=== PATIENT | female | born 1945 | race Caucasian/White ===

== ENCOUNTER 2020-01-09 07:50 | Emergency (ER) | payer MEDICARE, OTHER ==
[2020-01-09] MEDS ORDERED: fentaNYL 100 MCG/2 ML SDV IVPUSH ONE ×2 (08:01→09:36)
--- NOTE | 2020-01-09 08:06 | EDM.PDOC ---
ED HPI GENERAL MEDICAL PROBLEM - General Chief Complaint: Lower Extremity Injury/Pain Stated Complaint: FELL MAYBE BROKE LEG Time Seen by Provider: 01/09/20 08:00 Source of Information: Reports: Patient, RN Notes Reviewed History Limitations: Reports: No Limitations - History of Present Illness INITIAL COMMENTS - FREE TEXT/NARRATIVE: 74-year-old female presents emergency department today complaint of right leg pain, she does have a history of hip replacement x2 unfortunately early this morning she tripped over some boxes in her house landed on her right side heard a loud snap with immediate pain in her right leg, denies any loss of consciousness denies any syncopal event did not hit her head - Related Data Allergies Allergy/AdvReac Type Severity Reaction Status Date / Time No Known Allergies Allergy Verified 01/09/20 07:51 Home Meds: Home Meds NK [No Known Home Meds] 01/09/20 [History] Past Medical History HEENT History: Reports: Hard of Hearing COTTON FACTOR History: Reports: - Past Surgical History Head Surgeries/Procedures: Reports: None HEENT Surgical History: Reports: LASIK Female Surgical History: Reports: Salpingo-Oophorectomy Musculoskeletal Surgical History: Reports: Hip Replacement, Knee Replacement Dermatological Surgical History: Reports: None Social & Family History - Tobacco Use Smoking Status *Q: Never Smoker - Caffeine Use Caffeine Use: Reports: Coffee - Alcohol Use Days Per Week of Alcohol Use: 5 Number of Drinks Per Day: 1 Total Drinks Per Week: 5 - Recreational Drug Use Recreational Drug Use: No Review of Systems - Review of Systems Review Of Systems: See Below Respiratory: Reports: No Symptoms Cardiovascular: Reports: No Symptoms Musculoskeletal: Reports: Leg Pain (Right side) Neurological: Reports: No Symptoms ED EXAM, GENERAL - Physical Exam Exam: See Below Free Text/Narrative:: Examination the right leg she is in traction I do not appreciate any obvious deformity there is no erythema there is no edema there is no ecchymosis I cannot elicit any pain to palpation over the hip however she does have significant tenderness mid thigh consistent with a femur injury Exam Limited By: No Limitations General Appearance: Alert, Mild Distress Throat/Mouth: No Airway Compromise Respiratory/Chest: No Respiratory Distress Course - Vital Signs Last Recorded V/S: Last Vital Signs Temp 97.1 F 01/09/20 07:53 Pulse 82 01/09/20 08:45 Resp 16 01/09/20 08:08 BP 149/74 H 01/09/20 08:45 Pulse Ox 99 01/09/20 08:45 - Orders/Labs/Meds Orders: Active Orders 24 hr Category Date Time Status Femur Min 2V Rt [CR] Stat Exams 01/09/20 08:03 Taken Meds: Medications Discontinued Medications Generic Name Dose Route Start Last Admin Trade Name Katharina PRN Reason Stop Dose Admin Cyclobenzaprine HCl 10 mg 01/09/20 09:08 01/09/20 09:12 Flexeril PO 01/09/20 09:09 10 mg ONETIME ONE Administration Fentanyl 100 mcg 01/09/20 08:01 01/09/20 08:06 Sublimaze IVPUSH 01/09/20 08:02 100 mcg ONETIME ONE Administration Hydromorphone HCl 0.5 mg 01/09/20 09:07 01/09/20 09:12 Dilaudid IVPUSH 01/09/20 09:08 0.5 mg ONETIME ONE Administration Departure - Departure Time of Disposition: 09:30 Disposition: DC/Tfer to Acute Hospital 02 Condition: Fair Clinical Impression: Femur fracture, right Qualifiers: Encounter type: initial encounter Femur location: shaft Fracture type: closed Fracture morphology: spiral Fracture alignment: displaced Qualified Code(s): S72.341A - Displaced spiral fracture of shaft of right femur, initial encounter for closed fracture - Discharge Information Referrals: PCP,None [Primary Care Provider] - Forms: ED Department Discharge Sepsis Event Note (ED) - Evaluation Sepsis Screening Result: No Definite Risk - Focused Exam Vital Signs: Vital Signs Temp Pulse Resp BP Pulse Ox 01/09/20 08:45 82 149/74 H 99 01/09/20 08:08 68 16 141/59 H 99 01/09/20 07:53 97.1 F 67 16 161/66 H 99 - My Orders Last 24 Hours: My Active Orders 01/09/20 08:03 Femur Min 2V Rt [CR] Stat - Assessment/Plan Last 24 Hours: My Active Orders 01/09/20 08:03 Femur Min 2V Rt [CR] Stat Plan: Assessment Acuity = acute Site and laterality = right femur fracture Etiology = secondary to trauma Manifestations = none Location of injury = Home Lab values = x-ray describes a fracture listed above Plan Call discussed case with Dr. Beauchamp orthopedic surgeon at [facility] currently except the patient in transport will be transported via EMS ground at 905 This note was dictated using [employer]umed voice recognition software please call with any questions on syntax or grammar.
[2020-01-09] MEDS ORDERED: HYDROmorphone 0.5 MG/0.5 ML Syringe IVPUSH ONE (09:07)
[2020-01-09] MEDS ORDERED: Cyclobenzaprine 10 MG Tab PO ONE (09:08)
[2020-01-09] MEDS ORDERED: Ketamine 500 MG/5 ML MDV IV ONE (09:36)
[2020-01-09] MEDS ORDERED: Ketorolac 30 MG/ML SDV IVPUSH ONE (11:20)
--- NOTE | 2020-01-10 10:56 | CR ---
Femur Min 2V Rt CLINICAL HISTORY: Fall, pain FINDINGS: Patient has a total right hip arthroplasty. There is a comminuted displaced subtrochanteric fracture extending to the mid femur Impression: Comminuted displaced fracture of the right femur at and below the hip prosthesis
== END 2020-01-09 12:31 ==
LOC: JP.ED 07:50
DX: S72.341A Displaced spiral fracture of shaft of right femur, initial encounter for closed fracture (principal); W01.0XXA Fall on same level from slipping, tripping and stumbling without subsequent striking against object, initial encounter; Y92.009 Unspecified place in unspecified non-institutional (private) residence as the place of occurrence of the external cause
CPT/HCPCS: 73552; 96374; 96375; 96376; 99285; A9270; J1885; J3010; J1170